=== PATIENT | male | born 1945 | race Caucasian/White ===

== ENCOUNTER 2017-05-03 09:03 | Outpatient (CLI) | payer OTHER ==
[~2017-05-03 09:03] MED LIST: ATENOLOL25 MG; CARDIZEM30 MG; HUMULIN R500 U/ML; PLAVIX75 MG PO; XANAX XR0.5 MG PO
== END 2017-05-03 15:33 | disposition home or self-care (01) ==
LOC: MRI 09:03
DX: G30.1 Alzheimer's disease with late onset (principal); F01.50 Vascular dementia, unspecified severity, without behavioral disturbance, psychotic disturbance, mood disturbance, and anxiety
CPT/HCPCS: 70551

== ENCOUNTER 2020-12-15 10:26 | Emergency (ER) | payer OTHER ==
[~2020-12-15] VITALS: Ht 170.2 cm; Wt 65.8 kg
== END 2020-12-15 14:27 | disposition home or self-care (01) ==
LOC: ER 10:26
DX: R10.32 Left lower quadrant pain (principal)